=== PATIENT | male | born 1985 | race Caucasian/White ===

== ENCOUNTER 2016-07-21 22:51 | Emergency (ER) | payer OTHER ==
[2016-07-21 23:03] VITALS: BP 147/92; BMI 20.2
[2016-07-21] MEDS ORDERED: PROTONIX INJ 40 MG VIAL ONE (23:24)
[2016-07-21] MEDS ORDERED: PROTONIX INJ 40 MG VIAL IVP ONE (23:27)
[2016-07-22 00:29] LABS: BASOPHILS % (AUTO) 0.3 % (0.2-1.0); EOSINOPHILS # (AUTO) 0.2 x10^3/uL (0.0-0.2); EOSINOPHILS % (AUTO) 2.7 % (0.9-2.9); HEMATOCRIT 42.2 % (42.0-54.0); HEMOGLOBIN 14.5 g/dL (13.5-18.0); LYMPHOCYTES # (AUTO) 3.7 X10^3/uL (1.3-2.9); MEAN CORPUSCULAR HEMOGLOBIN 31.4 pg (27.0-34.0); MEAN CORPUSCULAR HGB CONC 34.4 g/dL (33.0-35.0); MEAN CORPUSCULAR VOLUME 91.4 fL (80.0-100.0); MEAN PLATELET VOLUME 7.3 fL (7.4-11.0); MONOCYTES # (AUTO) 0.8 x10^3/uL (0.3-0.8); MONOCYTES % (AUTO) 9.1 % (0.0-13.0); NEUTROPHILS # (AUTO) 4.1 x10^3/uL (2.2-4.8); NEUTROPHILS % (AUTO) 45.9 % (42.0-75.0); PLATELET COUNT 343 X10^3/uL (150.0-450.0); RED BLOOD COUNT 4.62 X10^6/uL (4.7-6.0); RED CELL DISTRIBUTION WIDTH 12.8 % (11.6-16.5); WHITE BLOOD COUNT 8.9 X10^3/uL (3.6-10.0)
[2016-07-22 00:35] LABS: BLOOD UREA NITROGEN 16 mg/dL (7-18); CALCIUM 8.9 mg/dL (8.5-10.1); CARBON DIOXIDE 31.4 mmol/L (21-32); CHLORIDE 105 mmol/L (98-107); COR NA(FOR HYPERGLY) 143 mmol/L (136-145); CREATININE 0.82 mg/dL (0.70-1.30); GLUCOSE 114 mg/dL (65-99); SODIUM 143 mmol/L (136-145); TROPONIN I < 0.02 ng/mL (0-1.5); eGFR BLACK RACES > 60 (>60); eGFR NON BLACK RACES > 60 (>60)
[2016-07-22 00:39] LABS: ALANINE AMINOTRANSFERASE 53 Units/L (12-78); ALKALINE PHOSPHATASE 111 Units/L (46-116); ASPARTATE AMINO TRANSFERASE 26 Units/L (15-37); CKMB % 0.6 % (<4); CREATINE KINASE 182 Units/L (39-308); CREATINE KINASE MB < 1.0 ng/mL (0-4.0); TOTAL PROTEIN 7.4 g/dL (6.4-8.2)
[2016-07-22] MEDS ORDERED: LEVSIN/MAALOX/LIDOC VISC PO ONE (01:07)
--- NOTE | 2016-07-22 01:08 | DR.GENAD ---
HPI - PCP Primary Care Physician: NFd - Complaint/Symptoms Chief Complaint Doctors Comments: chest pain Chief Complaint:: "About 30mins ago my chest started hurting really bad on the left side. It has now shot into my abdomen as well. My stomach feels like it is cramping up." - Nurses notes reviewed Nurses Notes Review: Yes - Source History Provided: Patient - Mode of Arrival Mode of Arrival: Ambulatory - Timing Onset of Chief Complaint: 07/21/16 Came on: Suddenly - Duration Duration: Intermittent How lon Duration: Minutes PMH - PMH Past Medical History: No Past Surgical History: No - Family History History of Family Medical Conditions: Yes Family Medical History: [place], Heart Failure, Hypertension - Social History Does patient currently use any type of tobacco product: No Have you used tobacco products in the last 12 months: Yes Type of Tobacco Use: None Does any household member use tobacco: Yes Do you use any recreational Drugs:: No [place] - infectious screening In the last 2 months have you had wt loss of >10#?: NO Have you had fever, night sweats or hemotysis?: No Have you traveled outside the country in the last 6 months?: No Isolation: Standard ROS - Review of Systems Constitutional: No Symptoms Reported Eyes: No Symptoms Reported ENTM: No Symptoms Reported Respiratoy: No Symptoms Reported Cardiovascular: No Symptoms Reported, Chest Pain Gastrointestinal/Abdominal: Abdominal Pain Genitourinary: No Symptoms Reported Neurological: No Symptoms Reported Musculoskeletal: No Symptoms Reported Integumentary: No Symptoms Reported Endocrine: No Symptoms Reported Psychiatric: No Symptoms Reported All Other Systems: Reviewed and Negative PE - Vital Signs Vitals: Temperature 97.6 F Pulse Rate 88 Respiratory Rate 18 Blood Pressure 147/92 O2 Sat by Pulse Oximetry 99 - General Limitations: No Limitations General Appearance: Alert, In No Apparent Distress - ENT Throat Exam: Normal Inspection - Chest Chest Inspection: Normal Inspection - Respiratory Respiratory Exam: Normal Lung Sounds Bilat - Cardiovascular Cardiovascular Exam: Regular Rate, Normal Rhythm, Normal Heart Sounds - Abdominal Exam Abdominal Exam: Normal Inspection, Soft Abdominal Tenderness: Epigastrium - Extremities Extremities Exam: Normal Inspection - Back Back Exam: Normal Inspection - Psychiatric Psychiatric Exam: Normal Affect - Skin Skin Exam: Warm, Dry, Intact, Normal Color ROR - Labs Reviewed Result Diagrams: 07/21/16 23:15 07/21/16 23:15 Laboratory: WBC 8.9 X10^3/uL (3.6-10.0) 07/21/16 23:15 RBC 4.62 X10^6/uL (4.7-6.0) L 07/21/16 23:15 Hgb 14.5 g/dL (13.5-18.0) 07/21/16 23:15 Hct 42.2 % (42.0-54.0) 07/21/16 23:15 MCV 91.4 fL (80.0-100.0) 07/21/16 23:15 MCH 31.4 pg (27.0-34.0) 07/21/16 23:15 MCHC 34.4 g/dL (33.0-35.0) 07/21/16 23:15 RDW 12.8 % (11.6-16.5) 07/21/16 23:15 Plt Count 343 X10^3/uL (150.0-450.0) 07/21/16 23:15 MPV 7.3 fL (7.4-11.0) L 07/21/16 23:15 Neut % 45.9 % (42.0-75.0) 07/21/16 23:15 Lymph % 42.0 % (21.0-51.0) 07/21/16 23:15 Harris % 9.1 % (0.0-13.0) 07/21/16 23:15 Eos % 2.7 % (0.9-2.9) 07/21/16 23:15 Baso % 0.3 % (0.2-1.0) 07/21/16 23:15 Neut # 4.1 x10^3/uL (2.2-4.8) 07/21/16 23:15 Lymph # 3.7 X10^3/uL (1.3-2.9) H 07/21/16 23:15 Harris # 0.8 x10^3/uL (0.3-0.8) 07/21/16 23:15 Eos # 0.2 x10^3/uL (0.0-0.2) 07/21/16 23:15 Baso # 0.0 X10^3/uL (0.0-0.1) 07/21/16 23:15 Absolute Nucleated RBC 0.4 /100WBC 07/21/16 23:15 Sodium 143 mmol/L (136-145) 07/21/16 23:15 Corrected Sodium 143 mmol/L (136-145) 07/21/16 23:15 Potassium 4.0 mmol/L (3.5-5.1) 07/21/16 23:15 Chloride 105 mmol/L (98-107) 07/21/16 23:15 Carbon Dioxide 31.4 mmol/L (21-32) 07/21/16 23:15 BUN 16 mg/dL (7-18) 07/21/16 23:15 Creatinine 0.82 mg/dL (0.70-1.30) 07/21/16 23:15 Est GFR (MDRD) Af Amer > 60 (>60) 07/21/16 23:15 Est GFR (MDRD) Non-Af > 60 (>60) 07/21/16 23:15 Glucose 114 mg/dL (65-99) H 07/21/16 23:15 Calcium 8.9 mg/dL (8.5-10.1) 07/21/16 23:15 Corrected Calcium TNP 07/21/16 23:15 Total Bilirubin 0.30 mg/dL (0.2-1.0) 07/21/16 23:15 AST 26 Units/L (15-37) 07/21/16 23:15 ALT 53 Units/L (12-78) 07/21/16 23:15 Alkaline Phosphatase 111 Units/L (46-116) 07/21/16 23:15 Creatine Kinase 182 Units/L (39-308) 07/21/16 23:15 CK-MB (CK-2) < 1.0 ng/mL (0-4.0) 07/21/16 23:15 CK/CKMB % Calc 0.6 % (<4) 07/21/16 23:15 Troponin I < 0.02 ng/mL (0-1.5) 07/21/16 23:15 Total Protein 7.4 g/dL (6.4-8.2) 07/21/16 23:15 Albumin 4.0 g/dL (3.4-5.0) 07/21/16 23:15 Globulin 3.4 g/dL (2.5-4.5) 07/21/16 23:15 Albumin/Globulin Ratio 1.2 Ratio (1.1-2.1) 07/21/16 23:15 H. pylori IgG Antibody Negative (NEGATIVE) 07/21/16 23:15 - Diagnosis Discharge Problem: Gastro-esophageal reflux, Gastritis - Discharge Plan Condition: Stable - Follow ups/Referrals Follow ups/Referrals: NFD,None [Primary Care Provider] - 3 days - Instructions Instructions: Indigestion, [id number], Gastroesophageal Reflux Disease, Adult , [id number]
[2016-07-22] MEDS ORDERED: LEVSIN/MAALOX/LIDOC VISC ONE (01:19)
== END 2016-07-22 01:33 ==
LOC: ER 23:02
DX: K21.9 Gastro-esophageal reflux disease without esophagitis (principal); K29.70 Gastritis, unspecified, without bleeding
CPT/HCPCS: 36415; 80053; 82550; 82553; 84484; 85025; 86677; 93005; 93010; 96365; 96374; 99283; A4222; C9113